=== PATIENT | female | born 1990 ===

== ENCOUNTER 2022-02-03 20:39 | Inpatient (IN) | payer OTHER ==
[~2022-02-03 20:39] MED LIST: Iopamidol 370 76% 100 ML VIAL ONE
[2022-02-03] MEDS ORDERED: Famotidine 20 MG TAB ONE (21:13)
[2022-02-03] MEDS ORDERED: Ondansetron PF 4 MG/2 ML Vial ONE (21:13)
[2022-02-03 21:19] LABS: #Lymphocytes 1.5 thou/uL (1.20-3.40); #Monocytes 0.5 thou/uL (0.11-0.59); #Neutrophils 11.3 thou/uL (1.40-6.50); %Basophils 0.2 % (0.0-1.0); %Lymphocytes 11.5 % (21.0-51.0); %Monocytes 3.6 % (0.0-10.0); %Neutrophils 84.7 % (42.0-75.0); Mean Corpuscular HGB CONC 36.4 g/dL (32.0-36.0); Mean Corpuscular Hemoglobin 32.2 pg (27.0-31.0); Mean Corpuscular Volume 88.3 fL (78.0-98.0); Mean Platelet Volume 6.3 fL (7.4-10.4); Platelet Count 360 thou/uL (130-400); RBC Distribution Width 10.6 % (11.5-14.5); Red Blood Cell (RBC) Count 4.65 mill/uL (4.20-5.40); White Blood Cell (WBC) Count 13.4 thou/uL (4.8-10.8)
[2022-02-03 21:20] LABS: Bacteria/HPF None Seen HPF (None Seen); Bilirubin Negative (Negative); Blood, Urine Negative (Negative); Clarity Clear (Clear); Glucose, Urine (Dipstick) Normal (Negative); Ketone, Urine 100 mg/dL (Negative); Leukocyte Negative Leu/uL (Negative); Nitrite Negative (Negative); Pregnancy Test - Urine (BHCG) Negative (Negative); Pregu Control Background? CLEAR/WHITE (CLR/WHITE); Pregu Control Bar Appear? YES (CONTROL BAR); Protein, Urine (Dipstick) 50 mg/dL (Neg-Trace); RBC/HPF 0-3 HPF (0-3); Specific Gravity 1.034 (1.002-1.036); Specific Gravity, Urine 1.034 (1.002-1.036); Squamous Epithelial 0-3 HPF (0-3); Urobilinogen Normal mg/dL (Less than 2); WBC/HPF 0-3 HPF (0-3); pH, Urine 5.5 (5.0-9.0)
[2022-02-03 21:32] LABS: ALT (SGPT) 19 U/L (8-55); AST (SGOT) 17 U/L (5-34); Albumin 4.9 g/dL (3.5-5.0); Alkaline Phosphatase 115 U/L (40-110); Anion Gap 17 mmol/L (10-20); BUN (Urea Nitrogen) 13 mg/dL (7.0-18.7); Bilirubin, Total 0.9 mg/dL (0.2-1.2); Calc. Creatinine Clearance 0 mL/min (70-130); Calcium 9.9 mg/dL (7.8-10.44); Carbon Dioxide 24 mmol/L (22-29); Chloride 101 mmol/L (98-107); Globulin 3.4 g/dL (2.4-3.5); Glucose 194 mg/dL (70-105); Lipase 117 U/L (8-78); Potassium 3.8 mmol/L (3.5-5.1); Protein, Total 8.3 g/dL (6.0-8.3); Sodium 138 mmol/L (136-145)
[2022-02-04 01:18] VITALS: BMI 28.1
[2022-02-04] MEDS ORDERED: Ketorolac Tromethamine 30 MG/ML VIAL IVP PRN (04:04)
[2022-02-04] MEDS: Sodium Chloride 0.9% 1,000 ML IV SCH ×4 (04:25→23:49)
[2022-02-04] MEDS ORDERED: Ondansetron ODT 4 MG TAB PO PRN (04:39)
[2022-02-04] MEDS ORDERED: Acetaminophen 650 MG Suppository PR PRN (04:39)
[2022-02-04] MEDS ORDERED: Ondansetron PF 4 MG/2 ML Vial IVP PRN (04:39)
[2022-02-04 06:08] LABS: #Eosinphils 0.1 thou/uL (0.0-0.7); #Lymphocytes 2.4 thou/uL (1.20-3.40); #Monocytes 0.6 thou/uL (0.11-0.59); %Basophils 0.2 % (0.0-1.0); %Eosinophils 0.5 % (0.0-10.0); %Lymphocytes 21.3 % (21.0-51.0); %Monocytes 5.1 % (0.0-10.0); %Neutrophils 72.9 % (42.0-75.0); Mean Corpuscular HGB CONC 36.4 g/dL (32.0-36.0); Mean Corpuscular Hemoglobin 32.4 pg (27.0-31.0); Platelet Count 293 thou/uL (130-400); RBC Distribution Width 10.7 % (11.5-14.5)
[2022-02-04 06:28] LABS: Anion Gap 13 mmol/L (10-20); BUN (Urea Nitrogen) 8 mg/dL (7.0-18.7); Calc. Creatinine Clearance 125 mL/min (70-130); Calcium 8.7 mg/dL (7.8-10.44); Carbon Dioxide 23 mmol/L (22-29); Chloride 108 mmol/L (98-107); Glucose 125 mg/dL (70-105); Potassium 3.6 mmol/L (3.5-5.1); Sodium 140 mmol/L (136-145)
[2022-02-04] MEDS ORDERED: Dextrose 50% Abboject 50 ML SYRINGE SLOW IVP PRN (06:43)
[2022-02-04] MEDS ORDERED: HumaLOG 300 UNITS/3 ML VIAL SC PRN ×2 (06:43)
[2022-02-04] MEDS ORDERED: Dextrose 5% in Water 1,000 ML IV PRN (06:43)
[2022-02-04] MEDS: Enoxaparin Sodium 40 MG/0.4 ML SYRINGE SC SCH (08:11)
[2022-02-04] MEDS: Morphine 4 MG/ML VIAL SLOW IVP PRN ×4 (08:14→20:05)
[2022-02-04] MEDS: Pantoprazole 40 MG VIAL IVP SCH (09:36)
[2022-02-04 12:22] LABS: SARS-CoV-2 PCR by NAA Not Detected (NotDetected)
[2022-02-04] MEDS: Acetaminophen 325 MG TAB PO PRN ×2 (14:34→23:51)
[2022-02-05] MEDS: Morphine 4 MG/ML VIAL SLOW IVP PRN (03:54)
[2022-02-05] MEDS: Sodium Chloride 0.9% 1,000 ML IV SCH (07:35)
[2022-02-05] MEDS: Enoxaparin Sodium 40 MG/0.4 ML SYRINGE SC SCH (07:51)
[2022-02-05 08:10] LABS: #Eosinphils 0.2 thou/uL (0.0-0.7); #Lymphocytes 2.5 thou/uL (1.20-3.40); #Monocytes 0.4 thou/uL (0.11-0.59); #Neutrophils 3.2 thou/uL (1.40-6.50); %Basophils 0.5 % (0.0-1.0); %Eosinophils 2.8 % (0.0-10.0); %Lymphocytes 39.6 % (21.0-51.0); %Neutrophils 51.1 % (42.0-75.0); Hemoglobin 11.2 g/dL (12.0-16.0); Mean Corpuscular HGB CONC 35.6 g/dL (32.0-36.0); Mean Corpuscular Hemoglobin 32.4 pg (27.0-31.0); Mean Corpuscular Volume 91.1 fL (78.0-98.0); Mean Platelet Volume 6.1 fL (7.4-10.4); Platelet Count 221 thou/uL (130-400); Red Blood Cell (RBC) Count 3.47 mill/uL (4.20-5.40); White Blood Cell (WBC) Count 6.3 thou/uL (4.8-10.8)
[2022-02-05 08:18] LABS: Anion Gap 9 mmol/L (10-20); BUN (Urea Nitrogen) 4 mg/dL (7.0-18.7); Calc. Creatinine Clearance 143 mL/min (70-130); Calcium 7.8 mg/dL (7.8-10.44); Carbon Dioxide 23 mmol/L (22-29); Chloride 112 mmol/L (98-107); Glucose 100 mg/dL (70-105); Potassium 3.3 mmol/L (3.5-5.1); Sodium 141 mmol/L (136-145)
[2022-02-05] MEDS: Pantoprazole 40 MG VIAL IVP SCH (08:24)
[2022-02-05] MEDS ORDERED: Morphine 2 MG/ML VIAL SLOW IVP PRN (09:44)
[2022-02-05] MEDS ORDERED: Sodium Chloride 0.9% 500 ML IV SCH (09:45)
[2022-02-05] MEDS ORDERED: Fentanyl 100 MCG/2 ML VIAL ONE (11:55)
[2022-02-05] MEDS ORDERED: PROPOFOL 200 MG/20 ML VIAL ONE (11:59)
[2022-02-05] MEDS ORDERED: Lidocaine 1% PF 5 ML VIAL ONE (11:59)
[2022-02-05] MEDS: NS 0.9% w/ 20 MEQ KCL 1,000 ML/1,000 ML BAG IV SCH ×3 (14:15→20:34)
[2022-02-05] MEDS: Pancrelipase DR 12,000 1 CAP PO SCH (17:08)
[2022-02-05] MEDS: Acetaminophen 325 MG TAB PO PRN (20:30)
[2022-02-06] MEDS: NS 0.9% w/ 20 MEQ KCL 1,000 ML/1,000 ML BAG IV SCH (03:00)
[2022-02-06] MEDS: Pancrelipase DR 12,000 1 CAP PO SCH (08:40)
[2022-02-06] MEDS: Enoxaparin Sodium 40 MG/0.4 ML SYRINGE SC SCH (08:40)
[2022-02-06 08:43] VITALS: BP 105/69; TEMP 98.7
[2022-02-06 09:57] LABS: Anion Gap 12 mmol/L (10-20); BUN (Urea Nitrogen) 7 mg/dL (7.0-18.7); Calc. Creatinine Clearance 125 mL/min (70-130); Calcium 9.2 mg/dL (7.8-10.44); Carbon Dioxide 23 mmol/L (22-29); Chloride 107 mmol/L (98-107); Glucose 214 mg/dL (70-105); Potassium 4.4 mmol/L (3.5-5.1); Sodium 138 mmol/L (136-145)
== END 2022-02-06 11:41 | disposition home or self-care (01) | DRG 440 ==
LOC: EEVIPCON 20:39 → ERS 20:39 → T4-B 23:05 → OBSVTOIN 02-05 09:42
PROVIDERS: ADMIT Student in an Organized Health Care Education/Training Program; ATTEND Internal Medicine
PROC: 0DB68ZX Excision of Stomach, Via Natural or Artificial Opening Endoscopic, Diagnostic (ICD-10-PCS; principal; 2022-02-05)
DX: K85.90 Acute pancreatitis without necrosis or infection, unspecified (principal); K29.60 Other gastritis without bleeding; F41.9 Anxiety disorder, unspecified; Z20.822 Contact with and (suspected) exposure to COVID-19; K44.9 Diaphragmatic hernia without obstruction or gangrene; E11.9 Type 2 diabetes mellitus without complications; D72.829 Elevated white blood cell count, unspecified; E86.0 Dehydration; E88.89 Other specified metabolic disorders; E87.6 Hypokalemia; K86.1 Other chronic pancreatitis; Z90.49 Acquired absence of other specified parts of digestive tract
CPT/HCPCS: 36415; 36416; 74177; 80048; 80053; 81003; 81015; 81025; 83690; 85025; 88305; 88342; 93005; 96372; 96374; 96375; 96376; C9113; G0378; J1650; J1815; J1885; J2270; J2405; J2704; J3010; J3480; J7050; Q9967; U0003; U0005